=== PATIENT | female | born 1990 | race Two or more races ===

== ENCOUNTER 2020-08-29 11:22 | Observation (INO) | payer MEDICAID, OTHER ==
[~2020-08-29] VITALS: Ht 160 cm; Wt 81.2 kg
[2020-08-29] MEDS ORDERED: PREN-96 PO (12:56)
[2020-08-29] MEDS ORDERED: ASPI-543 PO (12:57)
== END 2020-08-29 13:50 | disposition home or self-care (01) ==
LOC: OB 11:22 → LDRP 12:05
PROVIDERS: ADMIT Specialist; ATTEND Specialist
DX: O24.419 Gestational diabetes mellitus in pregnancy, unspecified control (principal); Z3A.32 32 weeks gestation of pregnancy
CPT/HCPCS: 59025; 76818; 81002; 82962; G0378

== ENCOUNTER 2020-09-01 11:05 | Observation (INO) | payer MEDICAID ==
[~2020-09-01 11:05] MED LIST: ASPI-543 PO; PREN-96 PO
== END 2020-09-01 14:35 | disposition home or self-care (01) ==
LOC: LDRP 11:05
PROVIDERS: ADMIT Obstetrics & Gynecology; ATTEND Obstetrics & Gynecology
DX: O24.410 Gestational diabetes mellitus in pregnancy, diet controlled (principal); Z3A.32 32 weeks gestation of pregnancy
CPT/HCPCS: 59025; 81002; 82948; 82962; G0378

== ENCOUNTER 2020-09-05 11:21 | Observation (INO) | payer MEDICAID | END 2020-09-05 13:26 | disposition home or self-care (01) | LOC: LDRP 11:21 | PROVIDERS: ADMIT Specialist; ATTEND Specialist | DX: O24.419 Gestational diabetes mellitus in pregnancy, unspecified control (principal); Z3A.33 33 weeks gestation of pregnancy | CPT/HCPCS: 59025; 76818; 81002; 82948; 82962; G0378 ==

== ENCOUNTER 2020-09-08 11:00 | Observation (INO) | payer MEDICAID ==
[~2020-09-08] VITALS: Ht 160 cm; Wt 68.0 kg
== END 2020-09-08 13:05 | disposition home or self-care (01) ==
LOC: LDRP 11:00
PROVIDERS: ADMIT Specialist; ATTEND Specialist
DX: O24.419 Gestational diabetes mellitus in pregnancy, unspecified control (principal); Z3A.33 33 weeks gestation of pregnancy
CPT/HCPCS: 59025; 76818; 81002; 82962; G0378

== ENCOUNTER 2020-09-12 08:18 | Observation (INO) | payer MEDICAID ==
[~2020-09-12] VITALS: Ht 160 cm; Wt 81.2 kg
== END 2020-09-12 12:30 | disposition home or self-care (01) ==
LOC: LDRP 08:18
PROVIDERS: ADMIT Obstetrics & Gynecology; ATTEND Obstetrics & Gynecology
DX: O24.419 Gestational diabetes mellitus in pregnancy, unspecified control (principal); Z3A.34 34 weeks gestation of pregnancy
CPT/HCPCS: 59025; 76818; 81002; 82948; 82962; G0378

== ENCOUNTER 2020-09-15 11:06 | Observation (INO) | payer MEDICAID ==
[~2020-09-15] VITALS: Ht 160 cm; Wt 81.2 kg
[2020-09-15] MEDS ORDERED: METF-370 PO (11:28)
== END 2020-09-15 12:20 | disposition home or self-care (01) ==
LOC: LDRP 11:06
PROVIDERS: ADMIT Obstetrics & Gynecology; ATTEND Obstetrics & Gynecology
DX: O24.415 Gestational diabetes mellitus in pregnancy, controlled by oral hypoglycemic drugs (principal); Z79.84 Long term (current) use of oral hypoglycemic drugs; Z3A.34 34 weeks gestation of pregnancy
CPT/HCPCS: 59025; 76818; 81002; 82948; G0378

== ENCOUNTER 2020-09-18 11:08 | Observation (INO) | payer MEDICAID ==
[~2020-09-18 11:08] MED LIST changes: +METF-370 PO
== END 2020-09-18 12:10 | disposition home or self-care (01) ==
LOC: LDRP 11:08
PROVIDERS: ADMIT Specialist; ATTEND Specialist
DX: O24.415 Gestational diabetes mellitus in pregnancy, controlled by oral hypoglycemic drugs (principal); Z3A.35 35 weeks gestation of pregnancy; Z79.84 Long term (current) use of oral hypoglycemic drugs; Z79.899 Other long term (current) drug therapy
CPT/HCPCS: 59025; 76818; 81002; 82948; 82962; G0378

== ENCOUNTER 2020-09-21 11:15 | Observation (INO) | payer MEDICAID | END 2020-09-21 12:56 | disposition home or self-care (01) | LOC: LDRP 11:15 | PROVIDERS: ADMIT Obstetrics & Gynecology; ATTEND Obstetrics & Gynecology | DX: O24.415 Gestational diabetes mellitus in pregnancy, controlled by oral hypoglycemic drugs (principal); O12.03 Gestational edema, third trimester; Z79.84 Long term (current) use of oral hypoglycemic drugs; Z3A.35 35 weeks gestation of pregnancy | CPT/HCPCS: 59025; 76818; 81002; 82948; 82962; G0378 ==

== ENCOUNTER 2020-09-25 10:20 | Observation (INO) | payer MEDICAID | END 2020-09-25 13:26 | disposition home or self-care (01) | LOC: LDRP 10:20 | PROVIDERS: ADMIT Specialist; ATTEND Specialist | DX: O24.419 Gestational diabetes mellitus in pregnancy, unspecified control (principal); Z3A.36 36 weeks gestation of pregnancy | CPT/HCPCS: 59025; 76818; 81002; 82948; 82962; G0378 ==

== ENCOUNTER 2020-09-28 10:09 | Observation (INO) | payer MEDICAID | END 2020-09-28 11:33 | disposition home or self-care (01) | LOC: LDRP 10:09 | PROVIDERS: ADMIT Specialist; ATTEND Specialist | DX: O24.415 Gestational diabetes mellitus in pregnancy, controlled by oral hypoglycemic drugs (principal); Z3A.36 36 weeks gestation of pregnancy | CPT/HCPCS: 59025; 76818; 81002; 82948; 82962; G0378 ==

== ENCOUNTER 2020-10-02 08:10 | Observation (INO) | payer MEDICAID ==
[2020-10-02] MEDS ORDERED: METF-370 PO (09:26)
== END 2020-10-02 09:35 | disposition home or self-care (01) ==
LOC: LDRP 08:10
PROVIDERS: ADMIT Obstetrics & Gynecology; ATTEND Obstetrics & Gynecology
DX: O24.419 Gestational diabetes mellitus in pregnancy, unspecified control (principal); O34.219 Maternal care for unspecified type scar from previous cesarean delivery; O62.9 Abnormality of forces of labor, unspecified; Z86.11 Personal history of tuberculosis; Z3A.39 39 weeks gestation of pregnancy
CPT/HCPCS: 59025; 76818; 81002; 82948; 82962; G0378

== ENCOUNTER 2020-10-05 10:27 | Observation (INO) | payer MEDICAID | END 2020-10-05 11:55 | disposition home or self-care (01) | LOC: LDRP 10:27 | PROVIDERS: ADMIT Obstetrics & Gynecology; ATTEND Obstetrics & Gynecology | DX: O24.415 Gestational diabetes mellitus in pregnancy, controlled by oral hypoglycemic drugs (principal); O34.219 Maternal care for unspecified type scar from previous cesarean delivery; O62.9 Abnormality of forces of labor, unspecified; Z3A.37 37 weeks gestation of pregnancy | CPT/HCPCS: 59025; 76818; 81002; 82948; 82962; G0378 ==

== ENCOUNTER 2020-10-09 11:38 | Observation (INO) | payer MEDICAID | END 2020-10-09 13:15 | disposition home or self-care (01) | LOC: LDRP 11:38 | PROVIDERS: ADMIT Obstetrics & Gynecology; ATTEND Obstetrics & Gynecology | DX: O24.419 Gestational diabetes mellitus in pregnancy, unspecified control (principal); Z3A.38 38 weeks gestation of pregnancy | CPT/HCPCS: 59025; 76818; 81002; 82948; G0378 ==

== ENCOUNTER 2020-10-12 11:57 | Observation (INO) | payer MEDICAID | END 2020-10-12 13:34 | disposition home or self-care (01) | LOC: LDRP 11:57 | PROVIDERS: ADMIT Obstetrics & Gynecology; ATTEND Obstetrics & Gynecology | DX: O24.419 Gestational diabetes mellitus in pregnancy, unspecified control (principal); Z20.822 Contact with and (suspected) exposure to COVID-19; Z3A.38 38 weeks gestation of pregnancy | CPT/HCPCS: 36415; 59025; 76818; 81002; 82948; 82962; 87426; G0378; U0003 ==

== ENCOUNTER 2020-10-15 04:00 | Inpatient (IN) | payer MEDICAID ==
[2020-10-15] VITALS (19 sets, daily range): BP systolic 95–132; BP diastolic 45–79
[~2020-10-15] VITALS: Ht 160 cm; Wt 83.0 kg
[2020-10-15] MEDS ORDERED: ceFAZolin 1GM/50ML 50 ML IV ONE (04:15)
[2020-10-15] MEDS ORDERED: LACTATED RINGER'S 1,000 ML IV ONE (04:15)
[2020-10-15 04:59] LABS: Basophils # (auto) 0.1 10 ^3/uL (0-0.2); Basophils % (auto) 0.9 % (0.0-2.0); Eosinophils # (auto) 0.1 10 ^3/uL (0-0.8); Eosinophils % (auto) 0.9 % (0.0-7.0); Hematocrit 34.7 % (36.0-46.0); Hemoglobin 11.6 g/dL (12.2-16.2); Lymphocytes # (auto) 1.8 10 ^3/uL (0.4-5.4); Lymphocytes % (auto) 23.2 % (10.0-50.0); Mean Corpuscular Hgb Conc. 33.4 g/dL (32.0-36.0); Mean Corpuscular Volume 83.7 fL (80.0-100.0); Monocytes # (auto) 0.5 10 ^3/uL (0-1.3); Monocytes % (auto) 6.4 % (0.0-12.0); Neutrophils # (auto) 5.3 10 ^3/uL (1.6-8.6); Neutrophils % (auto) 68.6 % (37.0-80.0); Nucleated Red Blood Cells % 0.1 %; Platelet Count (auto) 182 10^3/uL (140-450); Red Blood Cells 4.15 10^6/uL (4.0-5.20); Red Cell Distribution Width 15.8 % (11.8-14.3); White Blood Cell 7.8 10^3/uL (4.4-10.8)
[2020-10-15 05:17] LABS: INR 0.91 (0.9-1.15); Partial Thromboplastin Time 26.4 sec (23.0-31.2)
[2020-10-15 05:21] LABS: Albumin 2.6 g/dL (3.4-5.0); BUN/Creatinine Ratio 18.5; Calcium 8.7 mg/dL (8.5-10.1); Potassium 3.9 mmol/L (3.5-5.1)
[2020-10-15 05:24] LABS: Bilirubin, Total 0.2 mg/dL (0.2-1.0); Total Protein 7.5 g/dL (6.4-8.2)
[2020-10-15 05:57] LABS: Urine Bacteria FEW /hpf (None Seen); Urine Blood TRACE /uL (Negative); Urine Mucus FEW (None Seen); Urine Specific Gravity 1.019 (1.001-1.035); Urine WBC 3 /hpf (0 - 5)
[2020-10-15] MEDS: LACTATED RINGER'S 1,000 ML IV SCH ×3 (06:40→20:15)
[2020-10-15] MEDS ORDERED: TETRACAINE 1% INJ 2 ML VIAL IJ ONE (06:53)
[2020-10-15] MEDS ORDERED: fentaNYL CITRATE 100 MCG/2 ML VL ONE (07:05)
[2020-10-15] MEDS ORDERED: MORPHINE SULF(PF) 0.5MG/ML 10ML VIAL ONE (07:05)
[2020-10-15] MEDS ORDERED: oxyTOCIN 10 UNIT/ML 10ML VIAL ONE (07:06)
[2020-10-15] MEDS ORDERED: EPINEPHrine HCL 1 MG/1 ML AMP ONE (07:06)
[2020-10-15] MEDS ORDERED: BUPIVACAINE/DEXTROSE MPF 0.75% 2 ML AMP IT ONE (07:06)
[2020-10-15] MEDS ORDERED: ONDANSETRON HCL 4 MG/2 ML VIAL ONE (07:06)
[2020-10-15] MEDS ORDERED: SODIUM CHLORIDE LOCK 10 ML ONE (07:06)
[2020-10-15] MEDS ORDERED: MIDAZOLAM HCL 1MG/1ML-2 ML VIAL ONE (07:06)
[2020-10-15] MEDS ORDERED: CARBOPROST TROMETHAMINE 250 MCG/1ML VIAL IM ONE (07:53)
[2020-10-15] MEDS ORDERED: METOCLOPRAMIDE HCL 5MG/ml INJ 2ml VIAL ONE (07:56)
[2020-10-15] MEDS ORDERED: DexAMETHasone SOD PHOS 10MG/1ML VIAL INJ ONE (07:56)
[2020-10-15] MEDS ORDERED: ceFAZolin 1GM/50ML 50 ML IV SCH (08:15)
[2020-10-15] MEDS ORDERED: ONDANSETRON HCL 4 MG/2 ML VIAL IV PRN (08:15)
[2020-10-15] MEDS ORDERED: LACT. RINGERS/OXYTOCIN 20UNITS 1,000 ML IV ONE (08:15)
[2020-10-15] MEDS ORDERED: MORPHINE SULFATE 4 MG/ML SYR/VIAL IV PRN (09:15)
[2020-10-15] MEDS ORDERED: diphenhdrAMINE HCL 50 MG/1 ML VL IV PRN (09:15)
[2020-10-15] MEDS ORDERED: NALOXONE HCL 0.4 MG/ML VIAL IV PRN (09:15)
[2020-10-15] MEDS ORDERED: HYDROmorphone HCL 2 MG/ML VL IV PRN (09:15)
[2020-10-15] MEDS ORDERED: HYDR-4902 PO (10:16)
[2020-10-15] MEDS ORDERED: IBUP800T27 PO (10:18)
[2020-10-15] MEDS ORDERED: DOCU-94 PO (10:18)
[2020-10-15] MEDS: ceFAZolin 1GM/50ML 50 ML IV SCH ×2 (14:58→22:48)
[2020-10-15] MEDS ORDERED: ACETAMINOPHEN IV 1000 MG/100ML (10MG/ML) IV PRN (15:00)
[2020-10-15] MEDS: MORPHINE SULFATE 4 MG/ML SYR/VIAL IV PRN ×2 (15:06→19:01)
[2020-10-15 22:45] LABS: Basophils # (auto) 0 10 ^3/uL (0-0.2); Eosinophils # (auto) 0 10 ^3/uL (0-0.8); Hematocrit 31.8 % (36.0-46.0); Hemoglobin 10.5 g/dL (12.2-16.2); Lymphocytes # (auto) 1.4 10 ^3/uL (0.4-5.4); Lymphocytes % (auto) 11.2 % (10.0-50.0); Mean Corpuscular Hemoglobin 27.5 pg (28.0-32.0); Mean Corpuscular Volume 83.4 fL (80.0-100.0); Monocytes # (auto) 0.9 10 ^3/uL (0-1.3); Monocytes % (auto) 7.1 % (0.0-12.0); Neutrophils % (auto) 81.7 % (37.0-80.0); Platelet Count (auto) 166 10^3/uL (140-450); Red Blood Cells 3.82 10^6/uL (4.0-5.20); Red Cell Distribution Width 15.3 % (11.8-14.3); White Blood Cell 12.3 10^3/uL (4.4-10.8)
[2020-10-16] VITALS (12 sets, daily range): BP systolic 107–141; BP diastolic 60–77
[2020-10-16] MEDS: MORPHINE SULFATE 4 MG/ML SYR/VIAL IV PRN ×2 (03:09→06:55)
[2020-10-16] MEDS: LACTATED RINGER'S 1,000 ML IV SCH (04:33)
[2020-10-16 06:54] LABS: Basophils # (auto) 0 10 ^3/uL (0-0.2); Basophils % (auto) 0.2 % (0.0-2.0); Eosinophils # (auto) 0 10 ^3/uL (0-0.8); Eosinophils % (auto) 0.2 % (0.0-7.0); Hematocrit 31.3 % (36.0-46.0); Hemoglobin 10.7 g/dL (12.2-16.2); Lymphocytes # (auto) 1.6 10 ^3/uL (0.4-5.4); Lymphocytes % (auto) 16.2 % (10.0-50.0); Mean Corpuscular Hemoglobin 28.2 pg (28.0-32.0); Mean Corpuscular Volume 82.9 fL (80.0-100.0); Monocytes # (auto) 0.6 10 ^3/uL (0-1.3); Monocytes % (auto) 6.3 % (0.0-12.0); Neutrophils # (auto) 7.4 10 ^3/uL (1.6-8.6); Neutrophils % (auto) 77.1 % (37.0-80.0); Nucleated Red Blood Cells % 0.1 %; Platelet Count (auto) 157 10^3/uL (140-450); Red Blood Cells 3.78 10^6/uL (4.0-5.20); Red Cell Distribution Width 15.5 % (11.8-14.3); White Blood Cell 9.7 10^3/uL (4.4-10.8)
[2020-10-16] MEDS: ceFAZolin 1GM/50ML 50 ML IV SCH (06:55)
[2020-10-16 07:06] LABS: RPR Non Reactive (Non Reactive)
[2020-10-16] MEDS ORDERED: BISACODYL 10 MG RECT SUPP PR PRN (08:15)
[2020-10-16] MEDS: DOCUSATE SOD 100 MG CAP PO SCH ×2 (08:32→22:08)
[2020-10-16] MEDS: FERROUS SULFATE 325 MG TAB PO SCH ×2 (08:33→22:08)
[2020-10-16] MEDS: SIMETHICONE 80 MG CHEWABLE TABLET PO SCH ×3 (08:33→22:08)
[2020-10-16] MEDS: HYDROcodone-ACET 5/325MG TAB PO PRN ×3 (08:34→17:26)
[2020-10-16] MEDS: IBUPROFEN 800 MG TAB PO PRN ×2 (15:23→21:04)
[2020-10-17 03:00] VITALS: BP 134/72
[2020-10-17] MEDS: HYDROcodone-ACET 5/325MG TAB PO PRN ×5 (03:46→22:10)
[2020-10-17] MEDS: SIMETHICONE 80 MG CHEWABLE TABLET PO SCH ×4 (05:52→22:08)
[2020-10-17] MEDS: IBUPROFEN 800 MG TAB PO PRN ×2 (06:39→18:09)
[2020-10-17 06:44] VITALS: BP 128/78
[2020-10-17] MEDS: FERROUS SULFATE 325 MG TAB PO SCH ×2 (10:18→22:09)
[2020-10-17] MEDS: DOCUSATE SOD 100 MG CAP PO SCH ×2 (10:18→22:09)
[2020-10-17 11:20] VITALS: BP 120/77
[2020-10-17 14:50] VITALS: BP 128/83
[2020-10-17 19:00] VITALS: BP 125/80
[2020-10-17 23:00] VITALS: BP 124/74
[2020-10-18 03:00] VITALS: BP 131/75
[2020-10-18] MEDS: IBUPROFEN 800 MG TAB PO PRN (03:15)
[2020-10-18] MEDS: HYDROcodone-ACET 5/325MG TAB PO PRN (05:27)
[2020-10-18] MEDS: SIMETHICONE 80 MG CHEWABLE TABLET PO SCH (05:27)
[2020-10-18] MEDS ORDERED: INFLUENZA QUAD 2020-2021 0.5 ML SYRG IM ONE (07:00)
[2020-10-18] MEDS ORDERED: TETANUS-DIPTH-ACEL PERTUSSIS 0.5ML SYR Tdap IM ONE (07:00)
[2020-10-18] MEDS ORDERED: BISACODYL 10 MG RECT SUPP PR PRN (07:00)
[2020-10-18 07:30] VITALS: BP 129/79
== END 2020-10-18 09:36 | disposition home or self-care (01) | DRG 540 ==
LOC: LDRP 04:00
PROVIDERS: ADMIT Obstetrics & Gynecology; ATTEND Obstetrics & Gynecology
PROC: 10D00Z1 Extraction of Products of Conception, Low, Open Approach (ICD-10-PCS; principal; 2020-10-15 07:17)
DX: O34.211 Maternal care for low transverse scar from previous cesarean delivery (principal); O24.429 Gestational diabetes mellitus in childbirth, unspecified control; Z37.0 Single live birth; Z3A.39 39 weeks gestation of pregnancy
CPT/HCPCS: 36415; 59025; 80053; 81001; 81002; 82962; 85025; 85610; 85730; 86592; 86850; 86900; 86901; 90715; 94762; 96360; 96361; 96365; 96372; 96374; 96375; G0378; J0131; J0171; J0690; J1100; J2250; J2405; J2590